=== PATIENT | male | born 1950 | race Caucasian/White ===

== ENCOUNTER → 2017-12-25 | Outpatient (CLI) | payer MEDICARE, OTHER ==
[2014-09-03 12:47] VITALS: BMI 29.6
[~2017-12-25] MED LIST: ALL300 PO; ATEN-1 PO; ATEN-65 PO; DILT30TA35 PO; FURO-47 PO; HCTZ25 PO; KET10 PO; LOR5 PO; LOVA10TA63 PO; OMEP-125 PO; OMEP-153 PO; SPIR25TA80 PO; [UNRECOGNIZED DRUG - REMARK]
[2017-12-25 10:37] LABS: LDL CHOLESTEROL 83 mg/dl
== END ==
LOC: LAB 10:03
PROVIDERS: ATTEND Family Medicine
DX: E78.5 Hyperlipidemia, unspecified (principal); E11.9 Type 2 diabetes mellitus without complications; I10 Essential (primary) hypertension
CPT/HCPCS: 36415; 82040; 82043; 82247; 82310; 82374; 82435; 82465; 82565; 82947; 83036; 83718; 84075; 84132; 84155; 84295; 84450; 84460; 84478; 84520

== ENCOUNTER → 2018-03-30 | Outpatient (CLI) | payer MEDICARE, OTHER ==
[2014-09-03 12:47] VITALS: BMI 29.6
== END ==
LOC: LAB 12:59
PROVIDERS: ATTEND Urology
DX: Z12.5 Encounter for screening for malignant neoplasm of prostate (principal)
CPT/HCPCS: 36415; G0103; 84153

== ENCOUNTER → 2018-03-31 | Outpatient (CLI) | payer MEDICARE, OTHER ==
[2014-09-03 12:47] VITALS: BMI 29.6
--- NOTE | 2018-03-31 15:52 | EKG ---
FACILITY: [facility] PATIENT NAME: CHRISTINA LOCO : [id number] MR: [id number] V: [id number] EXAM DATE: ORDERING PHYSICIAN: LENY MCNULTY TECHNOLOGIST: MIGUEL Test Reason : HYPOXEMIA Blood Pressure : / mmHG Vent. Rate : 071 BPM Atrial Rate : 071 BPM P-R Int : 196 ms QRS Dur : 090 ms QT Int : 400 ms P-R-T Axes : 031 -04 014 degrees QTc Int : 434 ms Sinus rhythm with premature atrial complexes Otherwise normal ECG When compared with ECG of 28-AUG-2014 20:40, QRS axis shifted right T wave amplitude has increased in Anterior leads QT has shortened Confirmed by CHRISTINA BECKFORD ([id number]) on 03/31/2018 4:37:32 PM Referred By: HAMLET Confirmed By:CHRISTINA BECKFORD
== END ==
LOC: RESP 15:16
PROVIDERS: ATTEND Family Medicine
DX: I49.1 Atrial premature depolarization (principal)
CPT/HCPCS: 93005

== ENCOUNTER 2018-04-02 01:27 | Day surgery (SDC) | payer MEDICARE, OTHER ==
[2014-09-03 12:47] VITALS: Ht 180.3 cm; Wt 99.3 kg
[2018-04-01 14:46] LABS: PLATELET COUNT, AUTOMATED 120 K/uL (150-450)
[2018-04-01 15:07] LABS: INR 0.98
--- NOTE | 2018-04-01 19:02 | HISTORY AND PHYSICAL ---
DATE OF ADMISSION: April 02, 2018 CHIEF COMPLAINT Phimosis. HISTORY OF PRESENT ILLNESS Patient is a 67-year-old white male who presented to the Urology Clinic with a six-week history of worsening symptom of difficulty retracting his foreskin. The patient stated his symptom first began approximately two years ago and has gradually increased until the past six weeks when he had rapid progression of symptoms and is now unable to retract his foreskin at all. Prior to this, he was able to do it with extreme difficulty and resulted in some mild cracking and irritation with some bleeding. He also had an episode where he felt a questionable lump underneath the foreskin as well. He has had no history of urinary tract infections, kidney stones, or other history. His current PSA was 0.51. He also has no history of diabetes. Physical exam in the office revealed he had tightly phimotic skin. I was only able to retract it just enough to see the meatus which appeared normal. I could not appreciate any prepucal masses or discharge. He is now being brought to the operating room for planned circumcision with possible biopsy as indicated. Other options of topical anti-inflammatory creams versus dorsal slit were also discussed. PAST MEDICAL HISTORY 1. Hypercholesterolemia. 2. Hypertension. 3. Obstructive sleep apnea. 4. Gastroesophageal reflux disease. 5. Gout. 6. Cirrhosis with portal hypertension. PAST SURGICAL HISTORY 1. Tonsillectomy. 2. Bilateral cataracts. CURRENT MEDICATIONS 1. Aldactone. 2. Atenolol. 3. Lasix. 4. Lovastatin. 5. Omeprazole. 6. Spironolactone. 7. Zyloprim. ALLERGIES PENICILLIN and CLINDAMYCIN. FAMILY HISTORY Noncontributory. SOCIAL HISTORY Patient is and lives in [place], [place]. He denies current ethanol use, but has positive history in the past. REVIEW OF SYSTEMS Patient denies chest pain, productive cough, fever, chills, bleeding disorder, or chronic headaches. PHYSICAL EXAMINATION GENERAL: Patient is a well-developed, well-nourished, white male in no acute distress. HEENT: Normocephalic, atraumatic. CHEST: Clear to auscultation bilaterally. CARDIOVASCULAR: Regular rate and rhythm. ABDOMINAL: Mildly distended. Soft with a mild fluid wave consistent with possible ascites. He also has a positive umbilical hernia. GENITOURINARY: Uncircumcised penis with highly phimotic skin. His testes are descended bilaterally without masses. Digital rectal exam has normal sphincter tone with a normal prostate exam. EXTREMITIES: Without clubbing, cyanosis, or edema. NEUROLOGIC: Nonfocal. IMPRESSION A 67-year-old white male with progressive significant phimosis. PLAN Will perform an adult circumcision with possible biopsy as indicated. MTDD
[~2018-04-02] VITALS: Ht 180.3 cm; Wt 99.3 kg
[2018-04-02] MEDS ORDERED: MINERAL OIL LIGHT 10 ML VIAL ONE (08:05)
[2018-04-02] MEDS ORDERED: POVIDONE IOD 10% OINT 30 GM TB TP ONE (08:06)
[2018-04-02] MEDS ORDERED: ROPIVACAINE 0.2% 20 ML VIAL ONE (08:06)
[2018-04-02] MEDS ORDERED: NEOMYCIN/POLYMYX/BACITR 30 GM TP ONE (08:06)
[2018-04-02] MEDS ORDERED: GENTAMICIN IR ONE (08:15)
[2018-04-02] MEDS ORDERED: BACITRACIN IR ONE (08:15)
[2018-04-02] MEDS ORDERED: [UNRECOGNIZED DRUG - OTHER] IR ONE (08:15)
[2018-04-02] MEDS ORDERED: MIDAZOLAM 2 MG/2 ML VIAL IVP PRN (09:00)
[2018-04-02] MEDS ORDERED: FAMOTIDINE 20 MG TAB PO ONE (09:00)
[2018-04-02] MEDS ORDERED: LEVOFLOXACIN/D5W*500 MG/100 ML 100 ML IVPB ONE (09:00)
[2018-04-02] MEDS ORDERED: LIDOCAINE/SOD BICARB 8.4% SYR ID ONE (09:00)
[2018-04-02] MEDS ORDERED: NORMOSOL R SOLN(*) 1000 ML BAG 1,000 ML IV PRN (09:00)
[2018-04-02] MEDS ORDERED: ceFAZolin(*) 1 GM VIAL 1 GM, GENTAMICIN(*) 80 MG/2 ML VIAL 60 MG in NS 0.9% IRRIGATION ... IR ONE (09:00)
[2018-04-02] MEDS ORDERED: PROPOFOL EMUL(*) 10MG/ML 20 ML 20 ML ONE (09:52)
[2018-04-02] MEDS ORDERED: ONDANSETRON 4 MG/2 ML VIAL ONE (09:52)
[2018-04-02] MEDS ORDERED: LIDOCAINE MPF 1% 5 ML VIAL ONE (09:52)
[2018-04-02] MEDS ORDERED: DEXAMETHASONE SOD PHOS 10MG/ML ONE (09:52)
[2018-04-02] MEDS ORDERED: fentaNYL CITR 100 MCG/2 ML AMP ONE (09:53)
[2018-04-02] MEDS ORDERED: KETAMINE HCL-NS 50 MG/5 ML SYR ONE (09:53)
[2018-04-02 09:59] VITALS: BP 137/79
[2018-04-02] MEDS ORDERED: ROCURONIUM BROM 10 MG/ML 5 ML ONE (10:00)
[2018-04-02] MEDS ORDERED: SUGAMMADEX SOD 500 MG/5 ML SDV ONE (10:25)
[2018-04-02] MEDS ORDERED: KETOROLAC 30 MG/ML VIAL ONE (10:45)
[2018-04-02] MEDS ORDERED: HYDR-653 PO (11:24)
[2018-04-02] MEDS ORDERED: DOCU-416 PO (11:25)
[2018-04-02] MEDS ORDERED: NEOM1PAC11 TP (11:26)
[2018-04-02] MEDS ORDERED: IBUP600T22 PO (11:27)
[2018-04-02 12:07] VITALS: BP 145/91
[2018-04-02 12:30] VITALS: BP 133/83
[2018-04-02 12:44] VITALS: BP 137/84
[2018-04-02 12:45] VITALS: BP 131/76
--- NOTE | 2018-04-02 13:44 | OPERATIVE REPORT 1 ---
EVENT DATE: April 02, 2018 SURGEON: Hema Rios MD ANESTHESIOLOGIST: Sravan Menon MD ANESTHESIA: General. PADDED BOX SEWER: [*] PREOPERATIVE DIAGNOSIS Phimosis. POSTOPERATIVE DIAGNOSIS Phimosis. PROCEDURE PERFORMED Adult circumcision. ESTIMATED BLOOD LOSS 5 cc. IV FLUIDS Crystalloids. PATHOLOGY Foreskin for permanent analysis. COMPLICATIONS None. CONDITION The patient was taken to the recovery room awake and in stable condition. STATEMENT OF MEDICAL NECESSITY Patient is a 67-year-old white male with an approximately two year history of difficulty retracting the foreskin, which has recently increased in severity and is unable to be have been retracted in the past approximately six weeks, associated with some pain and bleeding from the cracked skin. Options were discussed and he has elected to undergo circumcision. Other options of dorsal slit and topical anti-inflammatory ointments were also explained. The specific risks and benefits of bleeding, infection, scar tissue, need for secondary procedure. Operative consent is signed and on the chart. DESCRIPTION OF PROCEDURE The patient was brought to the operating room. After general anesthetic was obtained, he was placed supine on the operating room table and prepped and draped sterilely. At this point, the patient was examined. The foreskin was still significantly phimotic and I was unable to retract it within approximately about 10%. Therefore, I introduced a straight hemostat clamp on the 12 o'clock dorsal position and crushed the tissues for one minute and then I released this clamp and performed an incision, performed a dorsal slit, which allowed me to reduce his foreskin. He had some mild erythematous changes to the glands. There were no tumors or other lesions. At this point, this area was prepped with Betadine solution. Then I changed gloves and proceeded with the circumcision. The foreskin was retracted into its normal anatomical position. The outer table was then marked with a marking pen. The foreskin was then retracted and the inner table was marked approximately 3 mm from the coronal sulcus. A #10 blade knife was then used to incise both of these marked incisions. They were connected on the dorsal aspect through the prior dorsal slit. The remnant foreskin was removed with electrocautery in a circumferential manner. Following this, copious amounts of saline were used to irrigate the wound. Small bleeding vessels were controlled with pinpoint electrocautery. The incision was then closed with interrupted 4-0 Chromic stitches. First a marking stitch as the 12, 6, 3 and 9 o'clock positions were placed. This was followed by closing the intervening segments with interrupted mattress 4-0 stitches. Following completion of the circumcision, the patient was given a penile block with 0.2% ropivacaine. Antibiotic ointment was placed along the glands and incision and a roll gauze was placed as well. The patient was awakened in the operating room and taken to the recovery area in stable condition. PLAN We will allow the patient to be discharged home today on Sutter, Colace, Motrin and antibiotic ointment. He is to remove the roll gauze later this afternoon. We will plan to see him in the Urology Clinic in four to six weeks. DIMITRI
== END 2018-04-02 11:57 | disposition home or self-care (01) ==
LOC: OR 01:27
PROVIDERS: ATTEND Urology
DX: N47.1 Phimosis (principal); I10 Essential (primary) hypertension; E78.00 Pure hypercholesterolemia, unspecified; G47.33 Obstructive sleep apnea (adult) (pediatric); K21.9 Gastro-esophageal reflux disease without esophagitis
CPT/HCPCS: 36415; 54150; 81001; 85025; 85610; 85730; 87088; 88305; A9270; J1100; J1885; J1956; J2001; J2405; J2704; J2795; J3010; J3490; 82040; 82247; 82310; 82374; 82435; 82565; 82947; 84075; 84132; 84155; 84295; 84450; 84460; 84520

== ENCOUNTER → 2018-07-09 | Outpatient (CLI) | payer MEDICARE, OTHER ==
[2014-09-03 12:47] VITALS: BMI 29.6
[~2018-07-09] MED LIST changes: +DOCU-416 PO; +HYDR-653 PO; +IBUP600T22 PO; +NEOM1PAC11 TP
[2018-07-09 11:40] LABS: LDL CHOLESTEROL 104 mg/dl
== END ==
LOC: LAB 09:55
PROVIDERS: ATTEND Family Medicine
DX: E78.5 Hyperlipidemia, unspecified (principal); E11.9 Type 2 diabetes mellitus without complications; I10 Essential (primary) hypertension; E11.8 Type 2 diabetes mellitus with unspecified complications
CPT/HCPCS: 36415; 82040; 82043; 82247; 82310; 82374; 82435; 82465; 82565; 82947; 83036; 83718; 84075; 84132; 84155; 84295; 84450; 84460; 84478; 84520

== ENCOUNTER → 2018-09-28 | Outpatient (CLI) | payer MEDICARE, OTHER ==
[2014-09-03 12:47] VITALS: BMI 29.6
[2018-09-28 12:09] LABS: PLATELET COUNT, AUTOMATED 116 K/uL (150-450)
== END ==
LOC: LAB 11:50
PROVIDERS: ATTEND Surgery
DX: Z01.812 Encounter for preprocedural laboratory examination (principal); G47.33 Obstructive sleep apnea (adult) (pediatric)
CPT/HCPCS: 36415; 85025

== ENCOUNTER → 2018-10-01 | Outpatient (CLI) | payer MEDICARE, OTHER ==
[2014-09-03 12:47] VITALS: BMI 29.6
--- NOTE | 2018-10-01 09:29 | RADIOLOGY IMAGING REPORT ---
FACILITY: [facility] [place] PATIENT NAME: Gaetano Rowan : 1950 MR: [id number] V: [id number] EXAM DATE: ORDERING PHYSICIAN: [facility] TECHNOLOGIST: Location: [facility] [place] Patient: Gaetano Rowan : 1950 Visit/Account:[id number] Date of Sevice: 10/01/2018 Focused right upper quadrant ultrasound HISTORY: Cirrhosis. COMPARISON: None available. Findings: Standard right upper quadrant abdominal ultrasound is performed. Pancreas: Visualized portions of the pancreas are unremarkable. Liver: Negative. Gallbladder and biliary system: Cholelithiasis. No gallbladder wall thickening or pericholecystic flu id. Aorta and IVC: The visualized aorta and IVC are patent. Kidneys: The right kidney measures 9.6 x 7.0 x 7.1 cm. No hydronephrosis. Ascites: None. IMPRESSION: 1. Cholelithiasis with no evidence of acute cholecystitis. 2. Otherwise unremarkable right upper quadrant ultrasound. Report Dictated By: Arvin Knight MD at 10/01/2018 9:23 AM Report E-Signed By: Arvin Knight MD at 10/01/2018 9:25 AM WSN:[id number]
== END ==
LOC: US 00:33
DX: K80.20 Calculus of gallbladder without cholecystitis without obstruction (principal)
CPT/HCPCS: 76705

== ENCOUNTER 2018-11-04 00:14 | Day surgery (SDC) | payer MEDICARE, OTHER ==
[2014-09-03 12:47] VITALS: Ht 180.3 cm; Wt 98.4 kg
[~2018-11-04] VITALS: Ht 180.3 cm; Wt 98.4 kg
[2018-11-04] MEDS ORDERED: LIDOCAINE MPF 1% 5 ML VIAL ONE (08:45)
[2018-11-04] MEDS ORDERED: PROPOFOL EMUL(*) 10MG/ML 20 ML 60 ML ONE (08:45)
[2018-11-04] MEDS ORDERED: NORMOSOL R SOLN(*) 1000 ML BAG 1,000 ML IV PRN (08:55)
[2018-11-04] MEDS ORDERED: LIDOCAINE/SOD BICARB 8.4% SYR ID ONE (08:55)
[2018-11-04 09:56] VITALS: BP 156/87
[2018-11-04 10:42] VITALS: BP 113/76
[2018-11-04 10:57] VITALS: BP 100/71
--- NOTE | 2018-11-04 10:59 | Short(Outpt) Discharge Summary ---
Discharge Summary Reason for Hosp/Final Diag: (1) Cirrhosis Status: Chronic Hospital Course & Plan: EGD completed without problem. Mild gastric varices, grade II esophageal varix (single column). (2) FARIA (nonalcoholic steatohepatitis) Status: Chronic (3) Colon cancer screening Status: Chronic Hospital Course & Plan: Colonoscopy with 2 large polypectomies completed without problems. Departure Discharge to: Home, Self Care Discharge Instructions Home Meds Active Scripts Atenolol (ATENOLOL) 25 Mg Tablet, 1 TAB PO QDAY, #30 TAB TAKE ONE TABLET BY MOUTH ONCE A DAY Prov:AGATHA SANTIZO MD 09/07/14 Allopurinol (ZYLOPRIM 300 MG TAB (OR EQUIV)) 300 Mg Tab, 300 MG PO QDAY, #30 TAB Prov:AGATHA SANTIZO MD 09/07/14 Spironolactone (SPIRONOLACTONE) 25 Mg Tab, 100 MG PO QDAY, #30 TAB Prov:AGATHA SANTIZO MD 09/07/14 Lovastatin (LOVASTATIN) 10 Mg Tablet, 1 TAB PO QHS, #90 TAB 3 Refills Prov:ALEXIS PRETTY MD 03/03/14 Reported Medications Furosemide (FUROSEMIDE) 40 Mg Tablet, 1 TAB PO DAILY, TAB 10/27/18 Ibuprofen (IBUPROFEN) 600 Mg Tablet, 1 TAB PO Q6H PRN for PAIN, #20 TAB 04/02/18 Diet: Regular Activity: As Tolerated Special Instructions: Your upper endoscopy was completed without problems. I saw a very mild varix in your lower esophagus. We will evaluate this again with another upper endoscopy in a year. Your colonoscopy was also completed without problems and your prep was excellent. I removed 2 large polyps, almost certainly precancerous polyps, and they were sent to pathology. My office will call you in the next week or two to let you know what the polyps are but, due to their size, I will likely recommend that we repeat a colonoscopy in 1 year to make sure they're not growing back. We can perform another upper endoscopy and colonoscopy at the same time in 1 year. Problem Qualifiers (1) Cirrhosis: Hepatic cirrhosis type: unspecified hepatic cirrhosis Ascites presence: without ascites Qualified Codes: K74.60 - Unspecified cirrhosis of liver CHRISTINA AZEVEDO MD November 04, 2018 10:59
[2018-11-04 11:22] VITALS: BP 119/82
[2018-11-04 11:37] VITALS: BP 117/80
[2018-11-04 11:39] VITALS: BP 117/74
== END 2018-11-04 11:58 | disposition home or self-care (01) ==
LOC: OR 00:14
PROVIDERS: ATTEND Surgery
DX: Z12.11 Encounter for screening for malignant neoplasm of colon (principal); D12.4 Benign neoplasm of descending colon; K62.1 Rectal polyp; K74.60 Unspecified cirrhosis of liver
CPT/HCPCS: 00813; 43235; 45385; 88305; J2001; J2704

== ENCOUNTER → 2019-01-22 | Outpatient (CLI) | payer MEDICARE, OTHER ==
[2014-09-03 12:47] VITALS: BMI 29.6
[~2019-01-22] MED LIST changes: -OMEP-125 PO; +OMEP-126 PO
[2019-01-22 09:41] LABS: LDL CHOLESTEROL 85 mg/dl
== END ==
LOC: LAB 08:58
PROVIDERS: ATTEND Family Medicine
DX: E78.5 Hyperlipidemia, unspecified (principal); E11.9 Type 2 diabetes mellitus without complications; M10.9 Gout, unspecified
CPT/HCPCS: 36415; 82040; 82043; 82247; 82310; 82374; 82435; 82465; 82565; 82947; 83036; 83718; 84075; 84132; 84155; 84295; 84450; 84460; 84478; 84520; 84550